=== PATIENT | female | born 1940 | race Caucasian/White ===

== ENCOUNTER → 2016-07-01 | Outpatient (CLI) | payer MEDICARE ==
--- NOTE | 2016-07-03 08:29 | MM ---
Reason for exam: screening (asymptomatic). Last mammogram was performed 1 year ago. History: Patient is postmenopausal. Took estrogen for 15 years beginning at age 48. Physical Findings: A clinical breast exam by your physician is recommended on an annual basis and results should be correlated with mammographic findings. MG 3D Screening Mammo W/Cad Bilateral CC and MLO view(s) were taken. Prior study comparison: June 24, 2015, bilateral MG 3d screening mammo w/cad. July 05, 2014, left breast MG work up mamm w CAD LT. June 29, 2014, bilateral MG screening mammo w CAD. June 19, 2013, bilateral MG screening mammo w CAD. June 17, 2012, bilateral digital screening mammo w/CAD. The breast tissue is heterogeneously dense. This may lower the sensitivity of mammography. Diffuse, vascular and secretory calcifications redemonstrated. Circumscribed nodule medial right breast waxes and wanes suggestive of a tiny cyst. No significant changes when compared with prior studies. ASSESSMENT: Benign, BI-RAD 2 RECOMMENDATION: Routine screening mammogram of both breasts in 1 year.
== END | disposition home or self-care (01) ==
LOC: RADMAMWWP 16:34
PROVIDERS: ATTEND Internal Medicine
DX: Z12.31 Encounter for screening mammogram for malignant neoplasm of breast (principal)
CPT/HCPCS: 77063; G0202

== ENCOUNTER → 2016-08-03 | Outpatient (CLI) | payer MEDICARE ==
[2016-08-03 07:10] LABS: CH 32.5; CHCM 32.3; HCT 46.8 % (34.0-46.0); HDW 2.08; HGB 14.9 gm/dL (11.4-16.0); MCH 32.1 pg (25.0-35.0); MCHC 31.8 g/dL (31.0-37.0); MCV 101.1 fL (80.0-100.0); Macrocytosis Slight; Mean Platelet Volume 6.8; RBC 4.63 m/uL (3.80-5.40)
[2016-08-03 07:24] LABS: ALT 29 U/L (9-52); AST 22 U/L (14-36); Alkaline Phosphatase 54 U/L (38-126); Anion Gap 10 mmol/L; Blood Urea Nitrogen 34 mg/dL (7-17); Calcium 9.3 mg/dL (8.4-10.2); Carbon Dioxide 27 mmol/L (22-30); Chloride 106 mmol/L (98-107); Cholesterol 191 mg/dL (<200); Glucose 116 mg/dL (74-99); HDL Cholesterol 54 mg/dL (40-60); Non-African American GFR(MDRD) >60 (>60 ml/min/1.73 sqM); Sodium 143 mmol/L (137-145); Total Bilirubin 0.5 mg/dL (0.2-1.3); Total Protein 6.9 g/dL (6.3-8.2); Triglycerides 188 mg/dL (<150)
[2016-08-03 13:02] LABS: Hemoglobin A1C 6.4 % (4.2-6.1)
== END | disposition home or self-care (01) ==
LOC: LABWHC1 06:33
PROVIDERS: ATTEND Internal Medicine
DX: I10 Essential (primary) hypertension (principal); E11.9 Type 2 diabetes mellitus without complications; E55.9 Vitamin D deficiency, unspecified; E78.00 Pure hypercholesterolemia, unspecified
CPT/HCPCS: 36415; 80053; 80061; 82043; 82306; 82570; 83036; 85027

== ENCOUNTER → 2019-03-08 | Outpatient (CLI) | payer MEDICARE ==
--- NOTE | 2019-03-08 09:34 | XR ---
Left wrist HISTORY: Numbness in first and second digit for 2 months, carpal tunnel 2 views of the left wrist Osteoarthritic change present at the carpometacarpal joint of the first digit, metacarpophalangeal viet int first digit. Alignment is maintained. No fracture or dislocation. Some remodeling present at the radiocarpal joint. Probable subchondral geode formation present proximal first metacarpal. IMPRESSION: Osteoarthritis
== END | disposition home or self-care (01) ==
LOC: RADXRMAIN 08:48
PROVIDERS: ATTEND Nurse Practitioner Family
DX: M19.032 Primary osteoarthritis, left wrist (principal); Z87.39 Personal history of other diseases of the musculoskeletal system and connective tissue

== ENCOUNTER → 2023-07-16 | Outpatient (CLI) | payer MEDICARE ==
--- NOTE | 2023-07-16 13:01 | XR ---
EXAMINATION TYPE: XR knee complete bilateral DATE OF EXAM: 07/16/2023 COMPARISON: NONE HISTORY: Pain TECHNIQUE: Three views are submitted. FINDINGS: Diffuse osteopenia with moderate patellofemoral and medial compartment joint arthropathy with margina l spurring. There is a trace amount of fluid in the supra patellar bursa bilaterally. Small bony dens ity in the anterior margin of the joint space on the right. Small loose body not excluded. Osseous st ructures are intact. No acute fracture seen. IMPRESSION: 1. Moderate bilateral osteoarthritis greater on the right. 2. Cannot exclude a small loose body within the anterior joint space of the right knee.
== END | disposition home or self-care (01) ==
LOC: RADXRMAIN 12:21
PROVIDERS: ATTEND Family Medicine
DX: M17.0 Bilateral primary osteoarthritis of knee (principal)

== ENCOUNTER 2023-10-02 12:30 | Emergency (ER) | payer MEDICARE | END 2023-10-02 13:03 | disposition home or self-care (01) | LOC: EC 12:30 | DX: H60.92 Unspecified otitis externa, left ear (principal) | CPT/HCPCS: 99282 ==

== ENCOUNTER 2024-01-18 09:50 | Emergency (ER) | payer MEDICARE ==
[2024-01-18 09:56] LABS: Glucose,Whole Blood 393 mg/dL (70-110)
--- NOTE | 2024-01-18 10:21 | ED ---
Recheck HPI - General Chief Complaint: Recheck/Abnormal Lab/Rx Stated Complaint: high blood sugar Time Seen by Provider: 01/18/24 10:02 Source: patient, RN notes reviewed Mode of arrival: ambulatory Limitations: no limitations - History of Present Illness Initial Comments: This is an 84-year-old female with history of DM presenting for elevated blood sugar, upset stomach and nausea x 1 day. Patient endorses use of metformin, stating she usually has good control of her blood sugar without the use of insulin. States blood sugar today was in the 300s. Patient endorses use of Pepto with some nausea relief. Endorses history of kidney disease but denies known history of liver or pancreatic disease. Patient denies fever, chills, fatigue, chest pain, dyspnea, vomiting/diarrhea, constipation, dizziness, urinary symptoms. MD Complaint: abnormal lab Onset/Timin -: days(s) Associated Symptoms: nausea - Related Data Home Medications Medication Instructions Recorded Confirmed Aspirin 81 mg PO DAILY 09/23/13 01/18/24 Levothyroxine Sodium [Synthroid] 25 mcg PO DAILY 09/23/13 01/18/24 lisinopriL [Prinivil] 10 mg PO DAILY 02/03/14 01/18/24 metFORMIN HCL [Glucophage] 500 mg PO DAILY 01/18/24 01/18/24 oxyBUTYnin chloride [oxyBUTYnin 5 mg PO DAILY 01/18/24 01/18/24 chloride ER] Allergies Allergy/AdvReac Type Severity Reaction Status Date / Time Sulfa (Sulfonamide Allergy Unknown Unknown Verified 01/18/24 11:37 Antibiotics) terfenadine [From Seldane] Allergy Unknown Unknown Verified 01/18/24 11:37 Review of Systems ROS Statement: Those systems with pertinent positive or pertinent negative responses have been documented in the HPI. ROS Other: All systems not noted in ROS Statement are negative. Past Medical History Past Medical History: Diabetes Mellitus, Hypertension, Thyroid Disorder History of Any Multi-Drug Resistant Organisms: None Reported Past Surgical History: Cholecystectomy, Hysterectomy Additional Past Surgical History / Comment(s): foot surgery Past Psychological History: No Psychological Hx Reported Smoking Status: Never smoker Past Alcohol Use History: None Reported Past Drug Use History: None Reported General Exam Limitations: no limitations General appearance: alert, in no apparent distress Head exam: Present: atraumatic, normocephalic, normal inspection Eye exam: Present: normal appearance, PERRL, EOMI. Absent: scleral icterus, conjunctival injection, periorbital swelling ENT exam: Present: normal exam, mucous membranes moist Neck exam: Present: normal inspection. Absent: tenderness, meningismus, lymphadenopathy Respiratory exam: Present: normal lung sounds bilaterally. Absent: respiratory distress, wheezes, rales, rhonchi, stridor Cardiovascular Exam: Present: regular rate, normal rhythm, normal heart sounds. Absent: systolic murmur, diastolic murmur, rubs, gallop, clicks GI/Abdominal exam: Present: soft, normal bowel sounds. Absent: distended, tenderness, guarding, rebound, rigid Extremities exam: Present: normal inspection, full ROM, normal capillary refill, pedal edema (BLE edema +1 without pitting, bilateral posterior tibialis pulse +2). Absent: tenderness, joint swelling, calf tenderness Back exam: Present: normal inspection Neurological exam: Present: alert, oriented X3, CN II-XII intact Psychiatric exam: Present: normal affect, normal mood Skin exam: Present: warm, dry, intact, normal color. Absent: rash Course Vital Signs 01/18/24 01/18/24 01/18/24 09:51 11:16 12:32 Temperature 97.9 F Pulse Rate 84 85 60 Respiratory 18 18 18 Rate Blood Pressure 123/65 126/65 157/76 O2 Sat by Pulse 99 97 99 Oximetry 01/18/24 15:45 Temperature Pulse Rate 86 Respiratory 18 Rate Blood Pressure 163/77 O2 Sat by Pulse 98 Oximetry Medical Decision Making - Medical Decision Making Was pt. sent in by a medical professional or institution (, PA, SOLDER TECHNICIAN, urgent care, hospital, or senior care...) When possible be specific @ -No Did you speak to anyone other than the patient for history (EMS, parent, family, police, friend...)? What history was obtained from this source @ -No Did you review nursing and triage notes (agree or disagree)? Why? @ -I reviewed and agree with nursing and triage notes Were old charts reviewed (outside hosp., previous admission, EMS record, old EKG, old radiological studies, urgent care reports/EKG's, senior care records)? Report findings @ -No old charts were reviewed Differential Diagnosis (chest pain, altered mental status, abdominal pain women, abdominal pain men, vaginal bleeding, weakness, fever, dyspnea, syncope, headache, dizziness, GI bleed, back pain, seizure, CVA, palpatations, mental health, musculoskeletal)? @ -Differential Abdominal Pain Women: Appendicitis, Cholecystitis, diverticulosis, ischemic bowel, pancreatitis, hepatitis, UTI, gastroenteritis, AAA, incarcerated hernia, bowel obstruction, constipation, inflammatory bowel, hepatitis, peptic ulcer disease, splenic infarction, perforated viscus, vulvitis, ovarian torsion, PID, kidney stone, placenta abruption, this is not meant to be an all-inclusive list EKG interpreted by me (3pts min.). @ -Sinus rhythm with left axis deviation. No ST changes or T wave inversion. Ventricular rate 90 bpm, MARLON 179 ms, QRS duration 117 ms, QTc 422 ms. X-rays interpreted by me (1pt min.). @ -Chest and KUB x-ray show no evidence for acute process. CT interpreted by me (1pt min.). @ - abdominal/pelvis CT showed 1.7 cm ill-defined hypodense area discovered at the head of the pancreas with recommendations for neoplasm workup. U/S interpreted by me (1pt. min.). @ - Liver ultrasound performed showing coarse echotexture of the liver with dila serge common bile duct. Hepatocellular disease suggested. What testing was considered but not performed or refused? (CT, X-rays, U/S, labs)? Why? @ -None What meds were considered but not given or refused? Why? @ -None Did you discuss the management of the patient with other professionals (professionals i.e. DrAkilah, PA, SOLDER TECHNICIAN, lab, RT, psych nurse, hospital social worker, maintenance of way foreman, teacher, loan review officer, child support case officer)? Give summary @ -Spoke to Dr. Kev Vivas who advised abdominal/pelvis CT. Spoke to Dr. Vivas again advised to discuss with patient option of immediate transfer for ongoing treatment/possible Whipple procedure for potential pancreatic neoplasm versus outpatient consult for surgery and oncology based on patient's wishes. Spoke to Dr. Spivey from [facility] who agreed to patient transfer. Was smoking cessation discussed for >3mins.? @ -No Was critical care preformed (if so, how long)? @ -No Were there social determinants of health that impacted care today? How? (Homelessness, low income, unemployed, alcoholism, drug addiction, transportation, low edu. Level, literacy, decrease access to med. care, senior living, rehab)? @ -No Was there de-escalation of care discussed even if they declined (Discuss DNR or withdrawal of care, Hospice)? DNR status @ -No What co-morbidities impacted this encounter? (DM, HTN, Smoking, COPD, CAD, Cancer, CVA, ARF, Chemo, Hep., AIDS, mental health diagnosis, sleep apnea, morbid obesity)? @ -DM Was patient admitted / discharged? Hospital course, mention meds given and route, prescriptions, significant lab abnormalities, going to OR and other pertinent info. @ -Lab work shows hyponatremia, hyper kalemia, hyperglycemia and grossly elevated LFTs. Negative troponin, lipase and lactic acid. Chest and KUB x-ray show no evidence for acute process. Following discovery of elevated LFTs, liver ultrasound performed showing coarse echotexture of the liver with dilated common bile duct. Hepatocellular disease suggested. Otherwise no evidence of acute process. Spoke to Dr. Kev Vivas who advised abdominal/pelvis CT. 1.7 cm ill- defined hypodense area discovered at the head of the pancreas with recommendations for neoplasm workup. Patient initially given IV Zofran for nausea followed by 10 units of NovoLog for hyperglycemia. P.o. Lokelma given following discovery of hyperkalemia. Hepatitis panel performed following discovery of elevated LFTs. Spoke to Dr. Vivas again advised to discuss with patient option of immediate transfer for ongoing treatment/possible Whipple procedure for potential pancreatic neoplasm versus outpatient consult for surgery and oncology based on patient's wishes. Patient spoke to son via phone and agreed to transfer to [facility] for immediate treatment for suspicious pancreatic neoplasm. Undiagnosed new problem with uncertain prognosis? @ -Pancreatic neoplasm Drug Therapy requiring intensive monitoring for toxicity (Heparin, Nitro, Insulin, Cardizem)? @ -No Were any procedures done? @ -No Diagnosis/symptom? @ -Pancreatic neoplasm, elevated liver enzymes, hyperglycemia, hyperkalemia Acute, or Chronic, or Acute on Chronic? @ -Acute Uncomplicated (without systemic symptoms) or Complicated (systemic symptoms)? @ -Complicated Side effects of treatment? @ -No Exacerbation, Progression, or Severe Exacerbation? @ -No Poses a threat to life or bodily function? How? (Chest pain, [place], [place], pneumonia, PE, COPD, DKA, ARF, appy, cholecystitis, CVA, Diverticulitis, Homicidal, Suicidal, threat to staff... and all critical care pts) @ -Pancreatic neoplasm - Lab Data Result diagrams: 01/18/24 10:28 01/18/24 10:28 Lab Results 01/18/24 01/18/24 01/18/24 Range/Units 09:54 10:20 10:28 WBC 7.5 (3.8-10.6) k/uL RBC 4.05 (3.80-5.40) m/uL Hgb 13.0 (11.4-16.0) gm/dL Hct 40.7 (34.0-46.0) % MCV 100.4 H (80.0-100.0) fL MCH 32.1 (25.0-35.0) pg MCHC 31.9 (31.0-37.0) g/dL RDW 12.5 (11.5-15.5) % Plt Count 319 (150-450) k/uL MPV 7.4 Neutrophils % 79 % Lymphocytes % 12 % Monocytes % 7 % Eosinophils % 1 % Basophils % 0 % Neutrophils # 5.9 (1.3-7.7) k/uL Lymphocytes # 0.9 L (1.0-4.8) k/uL Monocytes # 0.5 (0-1.0) k/uL Eosinophils # 0.1 (0-0.7) k/uL Basophils # 0.0 (0-0.2) k/uL PT (10.0-12.5) sec INR (<1.2) APTT (22.0-30.0) sec Sodium (137-145) mmol/L Potassium (3.5-5.1) mmol/L Chloride (98-107) mmol/L Carbon Dioxide (22-30) mmol/L Anion Gap mmol/L BUN (7-17) mg/dL Creatinine (0.52-1.04) mg/dL Est GFR (CKD-EPI)AfAm (>60 ml/min/1.73 sqM) Est GFR (CKD-EPI)NonAf (>60 ml/min/1.73 sqM) Glucose (74-99) mg/dL POC Glucose (mg/dL) 393 H 365 H (70-110) mg/dL POC Glu Shirt Line Operator ID Anamaria JIMENEZ Plasma Lactic Acid Cr (0.7-2.0) mmol/L Calcium (8.4-10.2) mg/dL Total Bilirubin (0.2-1.3) mg/dL AST (14-36) U/L ALT (4-34) U/L Alkaline Phosphatase (38-126) U/L Troponin I (0.000-0.034) ng/mL Total Protein (6.3-8.2) g/dL Albumin (3.5-5.0) g/dL Lipase (23-300) U/L 01/18/24 01/18/24 01/18/24 Range/Units 10:28 10:28 10:28 WBC (3.8-10.6) k/uL RBC (3.80-5.40) m/uL Hgb (11.4-16.0) gm/dL Hct (34.0-46.0) % MCV (80.0-100.0) fL MCH (25.0-35.0) pg MCHC (31.0-37.0) g/dL RDW (11.5-15.5) % Plt Count (150-450) k/uL MPV Neutrophils % % Lymphocytes % % Monocytes % % Eosinophils % % Basophils % % Neutrophils # (1.3-7.7) k/uL Lymphocytes # (1.0-4.8) k/uL Monocytes # (0-1.0) k/uL Eosinophils # (0-0.7) k/uL Basophils # (0-0.2) k/uL PT 10.1 (10.0-12.5) sec INR 0.9 (<1.2) APTT 22.5 (22.0-30.0) sec Sodium 129 L (137-145) mmol/L Potassium 5.4 H (3.5-5.1) mmol/L Chloride 99 (98-107) mmol/L Carbon Dioxide 22 (22-30) mmol/L Anion Gap 8 mmol/L BUN 46 H (7-17) mg/dL Creatinine 0.79 (0.52-1.04) mg/dL Est GFR (CKD-EPI)AfAm 81 (>60 ml/min/1.73 sqM) Est GFR (CKD-EPI)NonAf 70 (>60 ml/min/1.73 sqM) Glucose 334 H (74-99) mg/dL POC Glucose (mg/dL) (70-110) mg/dL POC Glu Shirt Line Operator ID Plasma Lactic Acid Cr 1.7 (0.7-2.0) mmol/L Calcium 9.3 (8.4-10.2) mg/dL Total Bilirubin 1.4 H (0.2-1.3) mg/dL AST 2352 H (14-36) U/L ALT 1525 H (4-34) U/L Alkaline Phosphatase 139 H (38-126) U/L Troponin I (0.000-0.034) ng/mL Total Protein 6.6 (6.3-8.2) g/dL Albumin 4.1 (3.5-5.0) g/dL Lipase 278 (23-300) U/L 01/18/24 01/18/24 01/18/24 Range/Units 10:28 12:07 13:10 WBC (3.8-10.6) k/uL RBC (3.80-5.40) m/uL Hgb (11.4-16.0) gm/dL Hct (34.0-46.0) % MCV (80.0-100.0) fL MCH (25.0-35.0) pg MCHC (31.0-37.0) g/dL RDW (11.5-15.5) % Plt Count (150-450) k/uL MPV Neutrophils % % Lymphocytes % % Monocytes % % Eosinophils % % Basophils % % Neutrophils # (1.3-7.7) k/uL Lymphocytes # (1.0-4.8) k/uL Monocytes # (0-1.0) k/uL Eosinophils # (0-0.7) k/uL Basophils # (0-0.2) k/uL PT (10.0-12.5) sec INR (<1.2) APTT (22.0-30.0) sec Sodium (137-145) mmol/L Potassium (3.5-5.1) mmol/L Chloride (98-107) mmol/L Carbon Dioxide (22-30) mmol/L Anion Gap mmol/L BUN (7-17) mg/dL Creatinine (0.52-1.04) mg/dL Est GFR (CKD-EPI)AfAm (>60 ml/min/1.73 sqM) Est GFR (CKD-EPI)NonAf (>60 ml/min/1.73 sqM) Glucose (74-99) mg/dL POC Glucose (mg/dL) 312 H 253 H (70-110) mg/dL POC Glu Shirt Line Operator ID AVINASH JIMENEZ Plasma Lactic Acid Cr (0.7-2.0) mmol/L Calcium (8.4-10.2) mg/dL Total Bilirubin (0.2-1.3) mg/dL AST (14-36) U/L ALT (4-34) U/L Alkaline Phosphatase (38-126) U/L Troponin I <0.012 (0.000-0.034) ng/mL Total Protein (6.3-8.2) g/dL Albumin (3.5-5.0) g/dL Lipase (23-300) U/L Disposition Clinical Impression: Pancreatic neoplasm, Elevated LFTs, Hyperkalemia, Hyponatremia, Hyperglycemia Disposition: OTHER INSTITUTION NOT DEFINED Condition: Good Is patient prescribed a controlled substance at d/c from ED?: No Referrals: Kev iVvas DO [Primary Care Provider] - 1-2 days Time of Disposition: 17:45 - Out of Hospital Transfer - Req. Specs Out of Hospital Transfer - Requested Specifics: Other Non-Acute ([facility])
[2024-01-18 10:22] LABS: Glucose,Whole Blood 365 mg/dL (70-110)
[2024-01-18 10:45] LABS: Basophils % (A) 0 %; Eosinophils # (A) 0.1 k/uL (0-0.7); Eosinophils % (A) 1 %; HCT 40.7 % (34.0-46.0); Lymphocytes # (A) 0.9 k/uL (1.0-4.8); Lymphocytes % (A) 12 %; MCH 32.1 pg (25.0-35.0); MCHC 31.9 g/dL (31.0-37.0); MCV 100.4 fL (80.0-100.0); Mean Platelet Volume 7.4; Monocytes # (A) 0.5 k/uL (0-1.0); Monocytes % (A) 7 %; Neutrophils # (A) 5.9 k/uL (1.3-7.7); Neutrophils % (A) 79 %; Platelet Count 319 k/uL (150-450); RBC 4.05 m/uL (3.80-5.40); RDW 12.5 % (11.5-15.5); WBC 7.5 k/uL (3.8-10.6)
[2024-01-18] MEDS: ONDANSETRON 4 MG/2 ML VIAL IVP STA (10:50)
[2024-01-18 10:57] LABS: INR 0.9 (<1.2); Partial Thromboplastin Time 22.5 sec (22.0-30.0); Prothrombin Time 10.1 sec (10.0-12.5)
[2024-01-18 10:59] LABS: African American GFR (CKD) 81 (>60 ml/min/1.73 sqM); Albumin 4.1 g/dL (3.5-5.0); Anion Gap 8 mmol/L; Blood Urea Nitrogen 46 mg/dL (7-17); Calcium 9.3 mg/dL (8.4-10.2); Carbon Dioxide 22 mmol/L (22-30); Chloride 99 mmol/L (98-107); Glucose 334 mg/dL (74-99); Lipase 278 U/L (23-300); Non-African American GFR(CKD) 70 (>60 ml/min/1.73 sqM); Sodium 129 mmol/L (137-145); Total Bilirubin 1.4 mg/dL (0.2-1.3); Total Protein 6.6 g/dL (6.3-8.2)
--- NOTE | 2024-01-18 11:03 | XR ---
EXAMINATION TYPE: XR chest 2V DATE OF EXAM: 01/18/2024 10:44 AM COMPARISON: Chest radiographs from 02/03/2014 CLINICAL INDICATION: Female, 84 years old with history of Nausea; TECHNIQUE: XR chest 2V Frontal and lateral views of the chest. FINDINGS: Lungs/Pleura: There is no evidence of pleural effusion, focal consolidation, or pneumothorax. Pulmonary vascularity: Unremarkable. Heart/mediastinum: Cardiomediastinal silhouette is enlarged and stable. Atherosclerotic calcificatio ns are seen in the aorta. Musculoskeletal: No acute osseous pathology. IMPRESSION: No acute cardiopulmonary disease/process. [facility], , 01/18/2024 11:01 AM
--- NOTE | 2024-01-18 11:13 | XR ---
EXAMINATION TYPE: XR KUB DATE OF EXAM: 01/18/2024 10:46 AM COMPARISON: none CLINICAL INDICATION: Female, 84 years old with history of Nausea; TECHNIQUE: One radiographic view of the abdomen was obtained. FINDINGS: There is a moderate stool burden, otherwise, the bowel gas pattern is nonspecific without d ilated loops of small or large bowel. Upper quadrant was selected clips. Fecal material and gas are d emonstrated throughout the colon and rectum. There is no evidence for organomegaly or pneumoperitoneum. The osseous structures are intact. No ab normal calcifications are present. IMPRESSION: Nonspecific bowel gas pattern without radiographic evidence for acute process. [facility], , 01/18/2024 11:10 AM
[2024-01-18] MEDS: INSULIN ASPART (NovoLOG) 100 UNIT/ML VIAL SQ ONE (11:17)
[2024-01-18] MEDS: SODIUM CHLORIDE 0.9% 1,000 ML IV STA (11:18)
[2024-01-18 11:47] LABS: Potassium 5.4 mmol/L (3.5-5.1)
[2024-01-18 11:48] LABS: ALT 1525 U/L (4-34); Alkaline Phosphatase 139 U/L (38-126)
[2024-01-18 12:12] LABS: AST 2352 U/L (14-36)
[2024-01-18] MEDS: SODIUM ZIRCONIUM CYCLOSILICATE 10 GM PACKET PO ONE (12:12)
[2024-01-18 12:15] LABS: Glucose,Whole Blood 312 mg/dL (70-110)
[2024-01-18 13:12] LABS: Glucose,Whole Blood 253 mg/dL (70-110)
--- NOTE | 2024-01-18 14:28 | US ---
EXAMINATION TYPE: US liver DATE OF EXAM: 01/18/2024 COMPARISON: NONE CLINICAL INDICATION: Female, 84 years old with history of Elevated liver enzymes; Elevated liver enzy mes. Hx cholecystectomy. TECHNIQUE: Grayscale and color Doppler imaging of the right upper quadrant. FINDINGS: EXAM MEASUREMENTS: Liver Length: 14.4 cm Gallbladder Wall: Surgically absent CBD: 1.27 cm, color Doppler imaging was utilized to isolate the common bile duct for measurement. Right Kidney: 9.6 x 5.5 x 4.7 cm GANG DRILL OPERATOR NOTES: Exam is limited due to a great amount of gas Pancreas: Not well seen. Liver: Appears coarse in echotexture Gallbladder: Surgically absent Evidence for sonographic Rivas's sign: no CBD: Dilated Right Kidney: *Hyperechoic focus seen lower pole = 0.3 x 0.3 x 0.2 cm. IMPRESSION: 1. No evidence for acute process. 2. There are segmentation to liver correlate for hepatocellular disease. 3. Nonobstructing right renal cocci. 4. Surgically absent gallbladder with physiologic dilation of the extra hepatic biliary system. [facility], , 01/18/2024 2:26 PM
--- NOTE | 2024-01-18 16:09 | CT ---
EXAMINATION TYPE: CT abdomen pelvis w con DATE OF EXAM: 01/18/2024 3:49 PM COMPARISON: None. CLINICAL INDICATION: Female, 84 years old with history of Hepatocellular disease, elevated LFTs, elev ated liver enzymes TECHNIQUE: Axial images were obtained from above the diaphragm to the pubic rami in the axial plane a t 5 mm thick sections. Reconstructed images are reviewed on the computer in the coronal plane. CONTRAST: 100 ml mL of Isovue 300. Study performed without Oral Contrast DLP: 966 mGycm, Automated exposure control for dose reduction was used. FINDINGS: Limited CT sections are obtained the lung bases. The lung bases are clear. CT ABDOMEN: Liver: Normal. No biliary dilatation is evident. No discrete masses are identified. Spleen: Normal Pancreas: Pancreatic duct is dilated. There is mild hypodensity through the head of the pancreas jeanna uring 1.7 cm. Additional workup is recommended. Neoplasm is not excluded. Adrenal glands: The adrenal glands are normal. Gallbladder: Surgically absent Kidneys: No masses are evident. No hydronephrosis is present. No cysts are present. Delayed images were obtained through the kidneys, which remain unremarkable. Aorta: Vascular calcification is within the aorta. Stent is within the left common iliac artery. Inferior vena cava: Normal. CT PELVIS: Loops of bowel within the abdomen and pelvis are normal. This study is without oral contrast limi ting bowel evaluation. There may be some residual contrast within distal small bowel loops and proxim al colon multiple diverticuli to the sigmoid colon. No acute diverticulitis. Appendix: Normal as visualized. Urinary bladder: Normal. Genitourinary structures: Uterus and ovaries are not identified. Osseous structures: No suspicious lytic or sclerotic lesions. IMPRESSION: 1. 1.7 cm ill-defined hypodense area in the head of the pancreas. Additional workup neoplasm recomme nded. 2. Diverticulosis without acute diverticulitis. [facility], Workstation: [facility], 01/18/2024 4:06 PM
[2024-01-18 19:00] LABS: Hepatitis C IgG Antibody Nonreactive (Nonreactive)
[2024-01-18] MEDS: hydrALAZINE HCL 20 MG/ML 1 ML VIAL IVP STA (19:07)
[2024-01-18 19:55] LABS: Hepatitis A Antibody IgM Nonreactive (Nonreactive); Hepatitis B Core IgM Nonreactive (Nonreactive); Hepatitis B Surface Antigen Nonreactive (Nonreactive)
[2024-01-18 20:17] LABS: Hepatitis B Surface AB- Quant 9.9 mIU/mL; Hepatitis B Surface Antibody Indetermin (Negative)
[2024-01-19] MEDS: lisinopriL 10 MG TAB PO SCH (10:16)
[2024-01-19] MEDS: metFORMIN 500 MG TAB PO SCH (10:16)
[2024-01-19] MEDS: LEVOTHYROXINE 25 MCG TAB PO SCH (10:16)
[2024-01-19] MEDS: ASPIRIN 81 MG PO SCH (10:16)
[2024-01-19] MEDS: OXYBUTYNIN XL 5 MG TAB.ER.24 PO SCH (10:16)
[2024-01-19 16:27] LABS: Glucose,Whole Blood 345 mg/dL (70-110)
[2024-01-19 22:06] LABS: Glucose,Whole Blood 344 mg/dL (70-110)
[2024-01-19] MEDS: INSULIN REGULAR 100 UNIT/ML VIAL (IV) IV ONE (22:23)
[2024-01-19 23:06] LABS: Glucose,Whole Blood 222 mg/dL (70-110)
[2024-01-19 23:31] LABS: Glucose,Whole Blood 153 mg/dL (70-110)
[2024-01-19] MEDS: ONDANSETRON ODT 4 MG TAB PO SCH (23:53)
[2024-01-19] MEDS: ONDANSETRON 4 MG/2 ML VIAL IVP SCH (23:53)
[2024-01-20 00:06] LABS: Glucose,Whole Blood 159 mg/dL (70-110)
[2024-01-20 01:55] LABS: Glucose,Whole Blood 204 mg/dL (70-110)
[2024-01-20 11:00] VITALS: RESP 18; TEMP 98
[2024-01-20 15:33] VITALS: BP 152/73; PULSE 85
== END 2024-01-20 15:33 | disposition other institution (70) ==
LOC: EC 09:50
DX: E11.65 Type 2 diabetes mellitus with hyperglycemia (principal); E87.5 Hyperkalemia; E87.1 Hypo-osmolality and hyponatremia; C25.9 Malignant neoplasm of pancreas, unspecified; R74.01 Elevation of levels of liver transaminase levels; Z88.2 Allergy status to sulfonamides; Z88.8 Allergy status to other drugs, medicaments and biological substances; Z79.84 Long term (current) use of oral hypoglycemic drugs
CPT/HCPCS: 99285 ×2; 96374 ×2; 96375 ×2; 96361 ×3; 36415 ×2; 93005; 86803; 87521; 80053; 80074; 82009; 83605; 83690; 84484; 85025; 85610; 85730; 86706; 86708; 86704; 87636; 71046; 74018; 76705; 74177; J0360; J2405 ×2; Q9967

== ENCOUNTER 2024-03-07 12:29 | Day surgery (SDC) | payer MEDICARE ==
[~2024-03-07 12:29] MED LIST: DEXAMETHASONE SOD PHOSPHATE 4 MG/ML 1 ML VIAL IV ONE; HYDROmorphone 0.5 MG/0.5 ML SYRINGE IVP PRN; LIDOCAINE 1% (10MG/ML) FOR IV START INTRADERMA PRN; Pre Op ABX Message 1 EACH MISC MISCELLANE ONE
[2024-03-07 13:18] LABS: Glucose,Whole Blood 203 mg/dL (70-110)
[2024-03-07] MEDS ORDERED: fentaNYL (PF) 50 MCG/ML 2 ML AMP ONE (13:28)
[2024-03-07] MEDS ORDERED: LIDOCAINE 1% INJ 10MG/ML (20 ML MDV) ONE (13:28)
[2024-03-07] MEDS ORDERED: ceFAZolin 1 GM/50 ML BAG (PMX) ONE (13:28)
[2024-03-07] MEDS ORDERED: WATER FOR INJECTION, STERILE 10 ML VIAL IV ONE (13:28)
[2024-03-07] MEDS ORDERED: PHENYLEPHRINE 10 MG/ML VIAL ONE (13:28)
[2024-03-07] MEDS ORDERED: PROPOFOL 10 MG/ML 20 ML VIAL IV ONE ×2 (13:28)
[2024-03-07] MEDS: IV FLUID CONTINUATION 1,000 ML IV ONE (13:32)
[2024-03-07] MEDS: LACTATED RINGERS 1,000 ML IV SCH (13:35)
[2024-03-07] MEDS: ONDANSETRON 4 MG/2 ML VIAL IVP ONE (13:36)
[2024-03-07] MEDS: ACETAMINOPHEN TAB 500 MG TAB PO PRN (13:36)
[2024-03-07] MEDS: HEPARIN SODIUM,PORCINE 5,000 UNIT/ML 1 ML VIAL SQ PRN (13:36)
--- NOTE | 2024-03-07 13:39 | P.GSHP ---
History of Present Illness H&P Date: 03/07/24 Chief Complaint: Pancreatic cancer 84-year-old female here today for Port-A-Cath placement. Recently diagnosed with pancreatic cancer. Patient has very poor IV access. Starting chemotherapy later this week. Past Medical History Past Medical History: Cancer, Diabetes Mellitus, Deep Vein Thrombosis (DVT), Hypertension, Thyroid Disorder Additional Past Medical History / Comment(s): pancreatic cancer, History of Any Multi-Drug Resistant Organisms: None Reported Past Surgical History: Cholecystectomy, Hysterectomy Additional Past Surgical History / Comment(s): foot surgery, ambika filter, Past Anesthesia/Blood Transfusion Reactions: No Reported Reaction Smoking Status: Never smoker - Past Family History Father Family Medical History: No Reported History Medications and Allergies Home Medications Medication Instructions Recorded Confirmed Type Aspirin 81 mg PO DAILY 09/23/13 03/07/24 History Levothyroxine Sodium [Synthroid] 25 mcg PO DAILY 09/23/13 03/07/24 History lisinopriL [Prinivil] 10 mg PO DAILY 02/03/14 03/07/24 History metFORMIN HCL [Glucophage] 500 mg PO DAILY 01/18/24 03/07/24 History oxyBUTYnin chloride [oxyBUTYnin 5 mg PO DAILY 01/18/24 03/07/24 History chloride ER] Allergies Allergy/AdvReac Type Severity Reaction Status Date / Time Sulfa (Sulfonamide Allergy Unknown Unknown Verified 03/07/24 12:47 Antibiotics) terfenadine [From Seldane] Allergy Unknown Unknown Verified 03/07/24 12:47 rofecoxib [From Vioxx] Allergy Rash/Hives Verified 03/07/24 12:47 Surgical - Exam Vital Signs Temp Pulse Resp BP Pulse Ox 97.5 F L 90 18 154/74 97 03/07/24 12:56 03/07/24 12:56 03/07/24 12:56 03/07/24 12:56 03/07/24 12:56 Physical exam: General: Well-developed, well-nourished HEENT: Normocephalic, sclerae nonicteric Abdomen: Nontender, nondistended Extremities: No edema Neuro: Alert and oriented Results - Labs Abnormal Lab Results - Last 24 Hours (Table) 03/07/24 Range/Units 13:17 POC Glucose (mg/dL) 203 H (70-110) mg/dL Assessment and Plan (1) Pancreatic cancer Narrative/Plan: 84-year-old female with pancreatic cancer. Will proceed with Port-A-Cath placement at this time. Risks of bleeding, infection, DVT, pneumothorax, catheter malfunction, anesthesia related complications were discussed. The patient understands and wishes to proceed. Current Visit: Yes Status: Acute Code(s): C25.9 - MALIGNANT NEOPLASM OF PANCREAS, UNSPECIFIED SNOMED Code(s): 053785111
[2024-03-07] MEDS: LIDOCAINE (PF) 10 MG/ML 2 ML VIAL SQ ONE ×2 (13:42→14:11)
[2024-03-07] MEDS: HEPARIN SODIUM,PORCINE 100 UNIT/ML 5 ML VIAL IV ONE ×2 (13:42→14:30)
[2024-03-07] MEDS: SODIUM CHLORIDE 0.9% 100 ML with ceFAZolin 2,000 MG IV ONE ×2 (13:53→14:11)
[2024-03-07 14:07] LABS: African American GFR (CKD) 84 (>60 ml/min/1.73 sqM); Anion Gap 6 mmol/L; Blood Urea Nitrogen 25 mg/dL (7-17); Carbon Dioxide 27 mmol/L (22-30); Chloride 103 mmol/L (98-107); Glucose 195 mg/dL (74-99); Non-African American GFR(CKD) 73 (>60 ml/min/1.73 sqM); Potassium 4.5 mmol/L (3.5-5.1); Sodium 136 mmol/L (137-145)
--- NOTE | 2024-03-07 14:45 | FL ---
EXAMINATION TYPE: FL guided central line placemt HISTORY: Fluoroscopy time Impression: 1. Fluoroscopy support provided to the referring physician. [facility], , 03/07/2024 2:43 PM
[2024-03-07] MEDS ORDERED: NALOXONE 0.4 MG/ML 1 ML VIAL IV PRN (14:56)
[2024-03-07] MEDS ORDERED: traMADol 50 MG TAB PO PRN (14:56)
[2024-03-07 14:57] LABS: Glucose,Whole Blood 178 mg/dL (70-110)
--- NOTE | 2024-03-07 15:01 | P.OP ---
Date of Procedure: 03/07/24 Procedure(s) Performed: PREOPERATIVE DIAGNOSIS: Pancreatic cancer POSTOPERATIVE DIAGNOSIS: Same PROCEDURE: Port-A-Cath placement with fluoroscopic and ultrasound guidance SURGEON: Zane EBL: 20 cc ANESTHESIA: General COMPLICATIONS: None OPERATIVE PROCEDURE: Patient was brought and placed on the operative table in the supine position. The patient was placed under general anesthesia at that time. The chest and neck were prepped and draped in usual sterile fashion. The ultrasound probe was used to identify the location of the right internal jugular vein. The skin was localized with lidocaine. The Seldinger needle was advanced into the IJ under ultrasound guidance. The wire was advanced through the needle under fluoroscopic guidance into the superior vena cava. A port pocket was created in the right infraclavicular location. A small area of bleeding was identified and controlled using a 3-0 Vicryl tie. No further bleeding was seen. The catheter was tunneled from the wire entrance site to the port pocket. The port was then connected to the catheter. The dilator introducer was threaded over the guidewire. The guidewire and dilator were then removed. The catheter was advanced through the introducer and introducer was then removed. The tip was seen to be in the right atrial junction via fluoroscopy. A picture of the radiograph showing the tip of the catheter was taken. Port was flushed with both saline and a Hep-Lock solution. There was good flow both in and out of the port. The port was sutured in underlying tissues using multiple 3-0 silk sutures. The subcutaneous tissues were reapproximated using 3-0 Vicryl sutures and the skin at both locations using 4-0 Monocryl sutures. Skin glue and sterile dressings then applied. DISPOSITION: Stable to recovery room
[2024-03-07 15:02] VITALS: TEMP 97.7
--- NOTE | 2024-03-07 15:23 | XR ---
EXAMINATION TYPE: XR chest 1V confirm line plcmt DATE OF EXAM: 03/07/2024 COMPARISON: 01/18/2024 CLINICAL INDICATION: Female, 84 years old with history of Check Line; , TECHNIQUE: XR chest 1V confirm line plcmt views of the chest. FINDINGS: Mediport catheter seen with tip overlying the SVC. No pneumothorax. A trace of pleural fluid bilaterally with bilateral areas of consolidation. Heart size stable. Athero sclerotic change aorta. Degenerative change of the spine and arthropathy of the shoulders. IMPRESSION: 1. Mediport catheter with tip overlying SVC. No sizable pneumothorax. 2. Bibasilar atelectasis favored over pneumonia. Trace amount of pleural fluid suspected. Correlate c jorge. [facility], , 03/07/2024 3:20 PM
[2024-03-07 15:53] VITALS: RESP 16
[2024-03-07 16:14] VITALS: BP 106/69; PULSE 95
== END 2024-03-07 16:31 ==
LOC: OR 12:29
PROVIDERS: ATTEND Surgery
DX: C25.9 Malignant neoplasm of pancreas, unspecified (principal); E11.9 Type 2 diabetes mellitus without complications; I10 Essential (primary) hypertension; Z79.84 Long term (current) use of oral hypoglycemic drugs; Z79.890 Hormone replacement therapy; Z86.718 Personal history of other venous thrombosis and embolism; Z88.1 Allergy status to other antibiotic agents; Z88.2 Allergy status to sulfonamides; Z90.49 Acquired absence of other specified parts of digestive tract; Z90.710 Acquired absence of both cervix and uterus
CPT/HCPCS: 80048; 77001; 36561; C1788; J1644; J1642; J2405; J0690 ×2; J2003; J3010; J2704; J2371

== ENCOUNTER → 2024-07-04 | Outpatient (CLI) | payer MEDICARE ==
[2024-07-04 10:25] LABS: African American GFR (CKD) 84 (>60 ml/min/1.73 sqM); Blood Urea Nitrogen 22 mg/dL (7-17); Non-African American GFR(CKD) 73 (>60 ml/min/1.73 sqM)
--- NOTE | 2024-07-04 14:49 | CT ---
EXAMINATION TYPE: CT ChestAbdPelvis w con DATE OF EXAM: 07/04/2024 COMPARISON: Prior CT abdomen and pelvis January 18, 2024 CLINICAL INDICATION: Female, 84 years old with history of C25.0 PANCREATIC CANCER, Pancreatic CA, TECHNIQUE: CT scan of the thorax, abdomen and pelvis is performed with IV Contrast, patient injected with 100 ml mL of Isovue 300. CT DLP: 1226.2 mGycm. Automated Exposure Control for Dose Reduction was Utilized. FINDINGS: LUNGS: There is a 4 mm peripheral nodule right upper lobe probably calcified granuloma axial image 22 . No greater than 4 mm noncalcified pulmonary nodule in the left lung. HEART: Size within normal limits. Mild coronary artery calcifications present. MEDIASTINUM: There are no greater than 1 cm hilar or mediastinal lymph nodes. No pericardial effusi on is seen. LIVER/GB: Cholecystectomy clips are redemonstrated. There is new metallic internal biliary stent. Bart e central pneumobilia suggests patency. There is improved biliary dilatation also noted. PANCREAS: Heterogeneous mass in the pancreatic head is well defined so difficult to accurately measur e. Distal ductal dilatation in the body and tail of the pancreas is again seen. Lesion likely fairly stable. SPLEEN: No significant abnormality is seen. ADRENALS: No significant abnormality is seen. KIDNEYS: No significant abnormality is seen. BOWEL: The oral Contrast does not reach the level of the terminal ileum. No abnormal small or large b owel dilatation. Diffuse colonic diverticulosis is redemonstrated. GENITAL ORGANS: Uterus is surgically absent. LYMPH NODES: No greater than 1cm abdominal or pelvic lymph nodes are appreciated. OSSEOUS STRUCTURES: Osseous structures are demineralized. Grade 1 anterolisthesis L4 on L5 is present . 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 OTHER: No significant additional abnormality is seen. IMPRESSION: Interval placement of metallic internal biliary stent with improved biliary dilatation. L ikely stable obstructing pancreatic head mass or neoplasm but difficult to accurately measure. No new suspicious metastatic disease or adenopathy clearly identified. [facility], , 07/04/2024 2:47 PM
== END | disposition home or self-care (01) ==
LOC: RADCTMAIN 09:52
PROVIDERS: ATTEND Internal Medicine Hematology & Oncology
DX: D64.81 Anemia due to antineoplastic chemotherapy (principal); I10 Essential (primary) hypertension; E78.5 Hyperlipidemia, unspecified; M12.9 Arthropathy, unspecified; C25.0 Malignant neoplasm of head of pancreas; Z71.3 Dietary counseling and surveillance
CPT/HCPCS: 82565; 84520; 71260; 74177; 36415; Q9967